=== PATIENT | male | born 1940 | race African-American/Black ===

== ENCOUNTER 2017-02-04 08:55 | Inpatient (IN) | payer OTHER ==
[~2017-02-04] VITALS: Ht 172.7 cm; Wt 89.3 kg
[~2017-02-04 08:55] MED LIST: ASPI-496 PO; METF10002 PO; [UNRECOGNIZED DRUG - OTHER]
[2017-02-04] MEDS ORDERED: SODIUM CHLORIDE 0.9% 1,000 ML IV ONE (09:48)
[2017-02-04] MEDS ORDERED: SODIUM CHLORIDE FLUSH 10ML SYR IVF ONE (10:00)
[2017-02-04] MEDS ORDERED: SODIUM CHLORIDE 0.9% 1,000ML IVBOLUS ONE (10:00)
[2017-02-04] MEDS ORDERED: ONDANSETRON 2MG/ML, 2ML IVPush ONE (10:00)
[2017-02-04] MEDS ORDERED: THIAMINE 100MG TABLET PO ONE (10:00)
[2017-02-04] MEDS ORDERED: THIAMINE 100MG TABLET ONE (10:32)
[2017-02-04] MEDS ORDERED: ONDANSETRON 2MG/ML, 2ML ONE (10:32)
[2017-02-04 10:48] LABS: ASPARTATE AMINO TRANSFERASE 28 U/L (15-37); BLOOD UREA NITROGEN 37 mg/dL (7-18)
[2017-02-04] MEDS ORDERED: SODIUM BICARB 8.4%, 50ML SYRINGE IVPush ONE (12:00)
[2017-02-04] MEDS ORDERED: DEXTROSE 50%, 50ML SYRINGE IVPush ONE (12:00)
[2017-02-04] MEDS ORDERED: CALCIUM CHLORIDE 10%, 10ML SYR IVPush ONE (12:00)
[2017-02-04] MEDS ORDERED: ALBUTEROL 0.5%, 20ML NPPB ONE (12:00)
[2017-02-04] MEDS ORDERED: FUROSEMIDE 40 MG/4 ML IVPush ONE (12:00)
[2017-02-04] MEDS ORDERED: INSULIN REGULAR 100 UNITS/ML, 3ML VIAL IVPush ONE (12:00)
[2017-02-04] MEDS ORDERED: SODIUM POLY SULFONATE UDC 15 GM/60 ML PO ONE (12:00)
[2017-02-04] MEDS ORDERED: DEXTROSE 50%, 50ML SYRINGE ONE (12:11)
[2017-02-04] MEDS ORDERED: SODIUM BICARBONATE 1 MEQ/ML, 50ML VIAL ONE (12:11)
[2017-02-04] MEDS ORDERED: CALCIUM CHLORIDE 10%, 10ML SYR ONE (12:11)
[2017-02-04] MEDS ORDERED: INSULIN SINGLE DOSE, ER SQ-INSULIN ONE (12:12)
[2017-02-04 12:18] LABS: PATH.CAST-FLAG NOT PRESENT; SPERM-FLAG NOT PRESENT; SRC-FLAG NOT PRESENT; XTAL-FLAG NOT PRESENT; YLC-FLAG NOT PRESENT
[2017-02-04] MEDS ORDERED: FUROSEMIDE 40 MG/4 ML ONE (12:38)
[2017-02-04] MEDS ORDERED: SODIUM POLYSTYRENE SULFONATE ORAL SUSP ONE (12:39)
[2017-02-04] MEDS ORDERED: SODIUM CHLORIDE 0.9% 1,000 ML IV SCH (13:19)
[2017-02-04] MEDS ORDERED: LORazepam 2 MG/ML, 1ML IVPush PRN (13:30)
[2017-02-04] MEDS ORDERED: HYDROcodone/APAP 5/325 TABLET PO PRN (13:30)
[2017-02-04] MEDS ORDERED: LABETALOL 5MG/ML, 20ML IV PRN (13:30)
[2017-02-04] MEDS ORDERED: ONDANSETRON 2MG/ML, 2ML IVP PRN (13:30)
[2017-02-04] MEDS ORDERED: MORPHINE SULFATE 4 MG/ML, 1ML IVPush PRN (13:30)
[2017-02-04 13:35] LABS: BLOOD UREA NITROGEN 36 mg/dL (7-18)
[2017-02-04 15:45] VITALS: BP 130/81
[2017-02-04] MEDS: INSULIN REGULAR 100 UNITS/ML, 3ML VIAL SQ-INSULIN SCH ×2 (16:00→21:00)
[2017-02-04] MEDS: PANTOPRAZOLE 40 MG IV IVP SCH ×2 (16:47→22:48)
[2017-02-04] MEDS: CEFTRIAXONE PMX 1GM/50ML 50 ML IV SCH (16:47)
[2017-02-04] MEDS: GUAIFENESIN 200 MG TABLET PO SCH ×2 (16:47→22:48)
[2017-02-04] MEDS: AZITHROMYCIN 500 MG TABLET PO SCH (18:22)
[2017-02-04 21:50] VITALS: BP 110/68
[2017-02-05 04:35] VITALS: BP 109/66
[2017-02-05] MEDS: GUAIFENESIN 200 MG TABLET PO SCH ×2 (05:50→16:02)
[2017-02-05 06:50] VITALS: BP 118/71
[2017-02-05] MEDS: INSULIN REGULAR 100 UNITS/ML, 3ML VIAL SQ-INSULIN SCH ×3 (07:00→16:00)
[2017-02-05 08:47] LABS: BLOOD UREA NITROGEN 32 mg/dL (7-18)
[2017-02-05] MEDS ORDERED: CEFD300C37 PO (08:56)
[2017-02-05] MEDS ORDERED: GABA100C PO (08:56)
[2017-02-05] MEDS ORDERED: GUAI200T3 PO (08:56)
[2017-02-05] MEDS ORDERED: OMEP-110 PO (08:56)
[2017-02-05] MEDS: PANTOPRAZOLE 40 MG IV IVP SCH (10:52)
[2017-02-05] MEDS: AZITHROMYCIN 500 MG TABLET PO SCH (10:53)
[2017-02-05 13:16] VITALS: BP 129/78
[2017-02-05] MEDS ORDERED: SODIUM CHLORIDE 0.9% 1,000 ML IV SCH (13:19)
[2017-02-05] MEDS: CEFTRIAXONE PMX 1GM/50ML 50 ML IV SCH (13:30)
[2017-02-05] MEDS ORDERED: PNEUMOCOCCAL 23 VACCINE IM-VACC ONE (16:30)
[2017-02-05] MEDS ORDERED: PANTOPROZOLE 40MG TABLET PO SCH (17:00)
== END 2017-02-05 18:00 | disposition home or self-care (01) | DRG 682 ==
LOC: ED 13:02 → EDIP 13:19 → 4WST 15:09
PROVIDERS: ADMIT Internal Medicine; ATTEND Internal Medicine
DX: N17.0 Acute kidney failure with tubular necrosis (principal); J18.9 Pneumonia, unspecified organism; K92.2 Gastrointestinal hemorrhage, unspecified; Z59.0 Homelessness; N18.4 Chronic kidney disease, stage 4 (severe); E87.5 Hyperkalemia; I12.9 Hypertensive chronic kidney disease with stage 1 through stage 4 chronic kidney disease, or unspecified chronic kidney disease; E11.22 Type 2 diabetes mellitus with diabetic chronic kidney disease; F10.10 Alcohol abuse, uncomplicated; Z83.3 Family history of diabetes mellitus; Z79.82 Long term (current) use of aspirin; Z79.899 Other long term (current) drug therapy; Z88.0 Allergy status to penicillin
CPT/HCPCS: 36415; 71010; 80048; 80053; 80061; 81001; 82140; 82962; 83036; 83605; 83690; 83735; 84100; 84132; 84145; 84443; 85014; 85018; 85025; 85610; 85730; 87040; 87324; 90732; 93005; 96361; 96374; 96375; J0696; J1940; J2405; C9113; J7030

== ENCOUNTER 2020-09-19 14:15 | Emergency (ER) | payer SELFPAY ==
[~2020-09-19] VITALS: Ht 175.3 cm; Wt 70.0 kg
[~2020-09-19 14:15] MED LIST changes: +CEFD300C37 PO; +GABA100C PO; +GUAI200T37 PO; +OMEP-110 PO
--- NOTE | 2020-09-19 14:36 | NUR ---
1 RESEARCH PROJECT MANAGER NOTE: NO ANSWER WHEN CALLED FROM [facility] Addendum: 09/19/20 at 1436 by ADDISON RESEARCH PROJECT MANAGER NOTE: NO ANSWER WHEN CALLED FROM [facility] 1
--- NOTE | 2020-09-19 17:16 | NUR ---
WEIGHER PRODUCTION: PT TO ROOM FROM [facility]AT[facility] Addendum: 09/19/20 at 1716 by RITA PT TO ROOM VIA W/C
--- NOTE | 2020-09-19 17:44 | NUR ---
PT HARD OF HEARING.
--- NOTE | 2020-09-19 17:44 | NUR ---
PT C/O BILATERAL LEG PAIN FOR 3 DAYS. PT STATES IT IS HIS NEUROPATHY AND HE HAS FELT THIS BEFORE. PT ALSO STATES HE HAS NOT HAD AN APPETITE FOR 3 DAYS. PT IS ALSO CONCERNED ABOUT HOW HE IS GOING TO GET BACK TO [facility] AND IS ASKING ABOUT HOW TO GET A RIDE BACK.
--- NOTE | 2020-09-19 19:03 | NUR ---
report received from teo johnson
[2020-09-19] MEDS ORDERED: HYDROcodone/APAP 5/325 TABLET ONE (19:29)
[2020-09-19] MEDS ORDERED: GABAPENTIN 300 MG CAPSULE ONE (19:30)
--- NOTE | 2020-09-19 19:43 | NUR ---
PT STATES HE HAS FRIEND FROM [employer] WHO ARE SUPPOSED TO PICK HIM UP. A FEW MOMENTS LATER PT STATES HE HAS NO FRIENDS AND IS EXPECTING HIS NIECE OR NEPHEW TO PICK HIM UP. PT ABLE TO PROVIDE PHONE NUMBER TO SISTER HEENA [phone]. PHONE CALL PLACED TO HEENA AND HEENA HAD NIECE SPEAK TO ME ABOUT DC. NIECE STATES HE LIVES WITH ROOMMATES HERE AND WILL CALL BACK WITH [facility]ES PHONE NUMBER.
[2020-09-19] MEDS ORDERED: GABAPENTIN 300 MG CAPSULE PO ONE (20:00)
[2020-09-19] MEDS ORDERED: HYDROcodone/APAP 5/325 TABLET PO ONE (20:00)
--- NOTE | 2020-09-19 20:11 | NUR ---
JAYESH MASSEY UNABLE TO FIND [facility]OMATES PHONE NUMBER.
--- NOTE | 2020-09-19 20:26 | NUR ---
PT HAS PLAN TO LEAVE HOSPITAL AND WALK TO [facility]IOR [facility]. PT OFFERED [employer]I VOUCHER AND PT HAS REFUSED MULTIPLE TIMES. PT STATES HE WILL GET A BUS PASS TOMORROW TO HEAD BACK TO [place]. PT GIVEN DC INSTRUCTIONS AND VERBALIZES UNDERSTANDING. PT HAS SIGNED NARCOTIC AGREEMENT AND VERBALIZES UNDERSTANDING OF THAT WELL. PT STEADY ON FEET
[2020-09-19 20:51] VITALS: BP 163/85
== END 2020-09-19 20:53 | disposition home or self-care (01) ==
LOC: ED 18:13
DX: E11.40 Type 2 diabetes mellitus with diabetic neuropathy, unspecified (principal); M79.672 Pain in left foot; M79.671 Pain in right foot
CPT/HCPCS: 99285

== ENCOUNTER 2020-10-03 02:59 | Emergency (ER) | payer SELFPAY ==
[~2020-10-03] VITALS: Ht 172.7 cm; Wt 82.0 kg
[2020-10-03] MEDS ORDERED: DIPHENHYDRAMINE 25 MG CAPSULE ONE (03:29)
[2020-10-03] MEDS ORDERED: DIPHENHYDRAMINE 25 MG CAPSULE PO ONE (03:30)
--- NOTE | 2020-10-03 03:56 | NUR ---
PT HERE BECAUSE HE IS HAVING ITCHINESS ALL OVER BODY. PT STATES HE HAS BED BUGS AT CORRECTION HE CAME FROM. NO BUGS NOTED ON SKIN OR CLOTHES. PT HAS REDNESS/RASH ON ARMS AND ABDOMEN. PT MEDICATED PER EMAR. PT JOKING AND LAUGHING WITH THIS RN DURING ENCOUNTER.
[2020-10-03 04:08] VITALS: BP 142/73
== END 2020-10-03 04:22 | disposition home or self-care (01) ==
LOC: ED 03:29
DX: S40.862A Insect bite (nonvenomous) of left upper arm, initial encounter (principal); S40.861A Insect bite (nonvenomous) of right upper arm, initial encounter; T78.49XA Other allergy, initial encounter; L29.9 Pruritus, unspecified; W57.XXXA Bitten or stung by nonvenomous insect and other nonvenomous arthropods, initial encounter; I10 Essential (primary) hypertension; E11.9 Type 2 diabetes mellitus without complications; Z87.891 Personal history of nicotine dependence; Y93.89 Activity, other specified; Y92.89 Other specified places as the place of occurrence of the external cause; Y99.8 Other external cause status
CPT/HCPCS: 99283; J7512; Q0163

== ENCOUNTER 2020-11-19 19:11 | Emergency (ER) | payer MEDICARE ==
[~2020-11-19] VITALS: Ht 175.3 cm; Wt 80.0 kg
[2020-11-19 19:18] VITALS: BP 183/85
--- NOTE | 2020-11-19 19:23 | NUR ---
PT [facility]. PER EMS PT HAS HIVES ON ALL EXTREMITIES. NO DIFFICULTY BREATHING, NO SWELLING. PT RECIEVED 50MG OF BENADRYL PO FROM EMS. PT RESTING IN GURNEY, MONITORING IN PLACE, NADN AT THIS TIME, PER PT NO NEEDS, WCTM.
[2020-11-19] MEDS ORDERED: FAMOTIDINE 20 MG TABLET ONE (19:44)
[2020-11-19] MEDS ORDERED: FAMOTIDINE 20 MG TABLET PO ONE (20:00)
[2020-11-19] MEDS ORDERED: DIPHENHYDRAMINE 25 MG CAPSULE PO ONE (20:00)
--- NOTE | 2020-11-19 20:02 | NUR ---
PT GIVEN DISCHARGE INSTRUCTIONS AND EDUCATION. PT VERBALIZED UNDERSTANDING. PT ALSO PROVIDED A BUS VOUCHER TO GO BACK TO [facility].
== END 2020-11-19 20:08 | disposition home or self-care (01) ==
LOC: ED 20:00
DX: L50.9 Urticaria, unspecified (principal); R21 Rash and other nonspecific skin eruption; I10 Essential (primary) hypertension; E11.9 Type 2 diabetes mellitus without complications; Z88.0 Allergy status to penicillin
CPT/HCPCS: 99283; J7512

== ENCOUNTER 2020-11-21 15:26 | Emergency (ER) | payer MEDICARE ==
[~2020-11-21] VITALS: Ht 175.3 cm; Wt 80.9 kg
[2020-11-21 16:12] LABS: BASOPHILS % (AUTO) 1 % (0-1); EOSINOPHILS % (AUTO) 10 % (1-7); LYMPHOCYTES % (AUTO) 26 % (22-44); MEAN CORPUSCULAR HEMOGLOBIN 33.4 pg (27.5-34.5); MEAN CORPUSCULAR HGB CONC 34.1 g/dL (33.2-36.2); MEAN PLATELET VOLUME 7.8 fL (7.4-10.4); MONOCYTES % (AUTO) 11 % (2-9); NEUTROPHILS % (AUTO) 52 % (42-75); PLATELET COUNT 317 x10^3/uL (130-400); RED BLOOD COUNT 3.97 x10^6/uL (4.38-5.82); RED CELL DISTRIBUTION WIDTH 13.8 % (9.4-14.8)
[2020-11-21 16:23] LABS: ALANINE AMINOTRANSFERASE 19 U/L (12-78); ALBUMIN 3.5 g/dL (3.4-5.0); ANION GAP 6 mmol/L (5-15); CALCIUM 9.1 mg/dL (8.5-10.1); CHLORIDE 104 mmol/L (98-107); CREATININE 1.94 mg/dL (0.7-1.3)
[2020-11-21] MEDS ORDERED: hydrOXyzine 50MG TABLET ONE (16:23)
[2020-11-21 16:25] LABS: ALKALINE PHOSPHATASE 78 U/L (45-117); BILIRUBIN,TOTAL 0.3 mg/dL (0.2-1.0); TOTAL PROTEIN 7.5 g/dL (6.4-8.2)
[2020-11-21 16:54] LABS: MD SCAN
[2020-11-21 16:59] VITALS: BP 155/85
== END 2020-11-21 17:22 | disposition home or self-care (01) ==
LOC: ED 16:14
DX: L20.84 Intrinsic (allergic) eczema (principal); I12.9 Hypertensive chronic kidney disease with stage 1 through stage 4 chronic kidney disease, or unspecified chronic kidney disease; E11.22 Type 2 diabetes mellitus with diabetic chronic kidney disease; N18.30 Chronic kidney disease, stage 3 unspecified
CPT/HCPCS: 36415; 80053; 85025; 99283; Q0177

== ENCOUNTER 2020-12-15 08:53 | Emergency (ER) | payer MEDICARE, MEDICAID ==
[~2020-12-15] VITALS: Ht 175.3 cm; Wt 78.5 kg
[2020-12-15 09:00] VITALS: BP 152/92
--- NOTE | 2020-12-15 09:18 | NUR ---
STATES HE NOTICED A RASH THAT STARTED 3 DAYS AGO. LIVING IN THE [facility] NOW. "I WAS TAKING MEDICINE FOR ITCHING" THINKS IT MIGHT BE ADDIRAX. TAKES 5 DIFFRENT BOTTLES OF MEDICATIONS, NOT SURE WHAT THEY ARE. PT STATES HIS ARMS AND TORSO ARE ITCHY. RED RASH NOTED TO ARMS AND TORSO.
== END 2020-12-15 10:17 | disposition home or self-care (01) ==
LOC: ED 09:08
DX: L23.5 Allergic contact dermatitis due to other chemical products (principal); I10 Essential (primary) hypertension; E11.9 Type 2 diabetes mellitus without complications
CPT/HCPCS: 82962; 99283

== ENCOUNTER 2021-01-27 15:12 | Emergency (ER) | payer MEDICARE, MEDICAID ==
[~2021-01-27] VITALS: Ht 175.3 cm; Wt 76.5 kg
[2021-01-27 15:46] VITALS: BP 152/77
[2021-01-27] MEDS ORDERED: FAMOTIDINE 20 MG TABLET PO ONE (16:30)
[2021-01-27] MEDS ORDERED: DIPHENHYDRAMINE 25 MG CAPSULE PO ONE (16:30)
--- NOTE | 2021-01-27 16:30 | NUR ---
CC OF RASH AND ITCHING ON BILAT SIDES OF TORSO. PT SITTING IN CHAIR IN ROOM, NO RASH OR ANY DISCOLORATION NOTED TO ANT/POST TORSO.
[2021-01-27] MEDS ORDERED: FAMOTIDINE 20 MG TABLET ONE (16:33)
[2021-01-27] MEDS ORDERED: DIPHENHYDRAMINE 25 MG CAPSULE ONE (16:33)
== END 2021-01-27 17:22 | disposition home or self-care (01) ==
LOC: ED 17:00
DX: R21 Rash and other nonspecific skin eruption (principal); T78.40XA Allergy, unspecified, initial encounter; E87.5 Hyperkalemia; E11.9 Type 2 diabetes mellitus without complications; I10 Essential (primary) hypertension; X58.XXXA Exposure to other specified factors, initial encounter
CPT/HCPCS: 99284; J7512; Q0163